=== PATIENT | female | born 2000 ===

== ENCOUNTER 2021-02-19 23:08 | Emergency (ER) | payer OTHER ==
[2021-02-20 00:30] LABS: Absolute Lymphocytes (CBC) 1.9 K/uL (0.7-4.9); Basophils % 0.3 % (0-1.3); Hematocrit 38.9 % (36.0-45.0); MPV 8.3 fL (7.6-11.3); Protime INR 1.15; RBC Red Blood Cell Count 4.54 M/uL (3.86-4.86)
[2021-02-20 00:45] LABS: ALT/SGPT 22 U/L (12-78); AST/SGOT 17 U/L (15-37); Albumin 3.4 g/dL (3.4-5.0); Alkaline Phosphatase 84 U/L (45-117); BUN Blood Urea Nitrogen 11 mg/dL (7-18); Bicarbonate 23 mmol/L (21-32); Bilirubin Direct < 0.1 mg/dL (0-0.2); Bilirubin Total 0.4 mg/dL (0.2-1.0); Glucose Level 126 mg/dL (74-106); NT PRO-BNP 53 pg/mL (<125); Potassium 3.2 mmol/L (3.5-5.1); Protein, Total 8.1 g/dL (6.4-8.2); Sodium Level 141 mmol/L (136-145); Troponin (Emerg Dept Use Only) < 0.02 ng/mL (0.0-0.045)
[2021-02-20] MEDS ORDERED: NA CHLORIDE 0.9% 1,000 ML ONE ×2 (01:08→02:03)
[2021-02-20] MEDS ORDERED: POTASSIUM CL SA 10 MEQ TAB PO ONE (02:03)
[2021-02-20] MEDS ORDERED: METHYLPREDNISOLONE 125 MG INJ ONE (02:13)
[2021-02-20] MEDS ORDERED: DIPHENHYDRAMINE 50 MG/ML VIAL ONE (02:14)
[2021-02-20] MEDS ORDERED: FAMOTIDINE 20 MG/2 ML VIAL IV ONE (02:14)
--- NOTE | 2021-02-20 03:34 | EDPHYS ---
Physician Documentation [facility] Name: Taniya Alcaraz Age: 20 yrs Sex: Female : 2000 Arrival Date: 02/19/2021 Time: 23:11 Bed 2 Private MD: ED Physician Anthony Marcelo HPI: 02/20 01:24 This 20 yrs old Female presents to ER via Ambulatory with complaints of Jellyfish mh7 Sting, Shortness Of Breath. 01:25 The patient was bitten on the right foot, by jellyfish. Onset: The symptoms/episode mh7 began/occurred yesterday, at 15:00. Animal information: jellyfish. Secondary to the bite the patient reports erythema, pain. Associated signs and symptoms: Pertinent positives: erythema at site, SOB. Severity of symptoms: At their worst the symptoms were moderate, yesterday, in the emergency department the symptoms have improved, moderately. MONITORING COORDINATOR: 02/19 23:45 LMP 02/18/2021 em Historical: - Allergies: 23:45 No Known Allergies; em - PMHx: 23:45 None; em - PSHx: 23:45 None; em - Immunization history:: Adult Immunizations up to date. - Social history:: Smoking status: Patient denies any tobacco usage or history of. ROS: 02/20 01:25 Constitutional: Negative for fever, chills, and weight loss, Eyes: Negative for injury, mh7 pain, redness, and discharge, ENT: Negative for injury, pain, and discharge, Neck: Negative for injury, pain, and swelling, Cardiovascular: Negative for chest pain, palpitations, and edema, Abdomen/GI: Negative for abdominal pain, nausea, vomiting, diarrhea, and constipation, Back: Negative for injury and pain, : Negative for injury, bleeding, discharge, and swelling, Neuro: Negative for headache, weakness, numbness, tingling, and seizure, Psych: Negative for depression, anxiety, suicide ideation, homicidal ideation, and hallucinations, Allergy/Immunology: Negative for hives, rash, and allergies, Endocrine: Negative for neck swelling, polydipsia, polyuria, polyphagia, and marked weight changes, Hematologic/Lymphatic: Negative for swollen nodes, abnormal bleeding, and unusual bruising. Exam: 01:25 Constitutional: This is a well developed, well nourished patient who is awake, alert, mh7 and in no acute distress. Head/Face: Normocephalic, atraumatic. Eyes: Pupils equal round and reactive to light, extra-ocular motions intact. Lids and lashes normal. Conjunctiva and sclera are non-icteric and not injected. Cornea within normal limits. Periorbital areas with no swelling, redness, or edema. Neck: Trachea midline, no thyromegaly or masses palpated, and no cervical lymphadenopathy. Supple, full range of motion without nuchal rigidity, or vertebral point tenderness. No Meningismus. Chest/axilla: Normal chest wall appearance and motion. Nontender with no deformity. No lesions are appreciated. Cardiovascular: Regular rate and rhythm with a normal S1 and S2. No gallops, murmurs, or rubs. Normal PMI, no JVD. No pulse deficits. Respiratory: Lungs have equal breath sounds bilaterally, clear to auscultation and percussion. No rales, rhonchi or wheezes noted. No increased work of breathing, no retractions or nasal flaring. Abdomen/GI: Soft, non-tender, with normal bowel sounds. No distension or tympany. No guarding or rebound. No evidence of tenderness throughout. Back: No spinal tenderness. No costovertebral tenderness. Full range of motion. 01:25 Neuro: Awake and alert, GCS 15, oriented to person, place, time, and situation. Cranial nerves II-XII grossly intact. Motor strength 5/5 in all extremities. Sensory grossly intact. Cerebellar exam normal. Normal gait. Psych: Awake, alert, with orientation to person, place and time. Behavior, mood, and affect are within normal limits. 01:25 Musculoskeletal/extremity: Extremities: noted in the right foot, dorsum: erythema, ROM: intact in all extremities, Circulation is intact in all extremities. Sensation intact. Compartment Syndrome exam of affected extremity: is normal. no numbness, no tingling, no sensation deficit, no palor, no weak pulses, Joints: All joints appear normal with full range of motion. Weight bearing: able to fully bear weight, without difficulty, Tendon exam: specific tendon testing normal through active and passive range of motion 01:25 Skin: erythema on dorsal right foot. Vital Signs: 02/19 23:43 BP 137 / 85; Pulse 135; Resp 24; Temp 97.7; Pulse Ox 99% on R/A; Weight 77.11 kg; bb Height 5 ft. 2 in. (157.48 cm); Pain 01/18; 02/20 01:03 BP 116 / 64; Pulse 104; Resp 19; Pulse Ox 98% ; ea 02:00 BP 112 / 68; Pulse 105; Resp 18; Pulse Ox 100% ; rr5 03:00 BP 109 / 61; Pulse 87; Resp 18; Pulse Ox 98% on R/A; ea 03:41 BP 106 / 75; Pulse 89; Resp 16; Pulse Ox 100% ; rr5 02/19 23:43 Body Mass Index 31.09 (77.11 kg, 157.48 cm) bb MDM: 03:32 Differential diagnosis: cellulitis, Jellyfish Sting. Data reviewed: vital signs, nurses [facility] notes, lab test result(s), cardiac enzymes, CBC, electrolytes, urinalysis, EKG, radiologic studies, plain films. Data interpreted: Pulse oximetry: on room air is 98 %. Interpretation: normal. Counseling: I had a detailed discussion with the patient and/or guardian regarding: the historical points, exam findings, and any diagnostic results supporting the discharge/admit diagnosis, lab results, radiology results, the need for outpatient follow up, to return to the emergency department if symptoms worsen or persist or if there are any questions or concerns that arise at home. Response to treatment: the patient's symptoms have resolved after treatment, the patient's blood pressure is in an acceptable range, mental status has returned to baseline, the patient no longer shows bradycardia, the patient is not short of breath, the patient is not tachycardic, the patient's pain is gone, the patient's temperature has normalized. 03:34 Patient medically screened. [facility] 02/19 23:50 Order name: Basic Metabolic Panel [facility] 02/19 23:50 Order name: CBC with Diff 02/19 23:50 Order name: LFT's 02/19 23:50 Order name: Magnesium; Complete Time: 01:39 [facility] 02/19 23:50 Order name: NT PRO-BNP; Complete Time: 01:39 [facility] 02/19 23:50 Order name: PT-INR; Complete Time: 01:39 02/19 23:50 Order name: Troponin (emerg Dept Use Only); Complete Time: 01:39 rr5 02/19 23:50 Order name: XRAY Chest (1 view) rr5 02/19 23:51 Order name: Basic Metabolic Panel; Complete Time: 01:39 EDMS 02/19 23:51 Order name: CBC with Automated Diff; Complete Time: 01:39 EDMS 02/19 23:51 Order name: Liver (Hepatic) Function; Complete Time: 01:39 EDMS 02/19 23:50 Order name: EKG; Complete Time: 23:51 5 02/19 23:50 Order name: Cardiac monitoring; Complete Time: 00:09 5 02/19 23:50 Order name: EKG - Nurse/Tech; Complete Time: 00:09 5 02/19 23:50 Order name: IV Saline Lock; Complete Time: 00:08 5 02/19 23:50 Order name: Labs collected and sent; Complete Time: 00:09 5 02/19 23:50 Order name: O2 Per Protocol; Complete Time: 00:09 5 02/19 23:50 Order name: O2 Sat Monitoring; Complete Time: 00:09 rr5 Administered Medications: 00:51 Drug: NS 0.9% 1000 ml Route: IV; Rate: 1 bolus; Site: left antecubital; ea 03:41 Follow up: IV Status: Completed infusion; IV Intake: 1000ml ea 01:48 Drug: NS 0.9% 1000 ml Route: IV; Rate: 1 bolus; Site: left forearm; rr5 03:41 Follow up: Response: No adverse reaction; IV Status: Completed infusion; IV Intake: ea 1000ml 01:48 Drug: Potassium Chloride 40 mEq Route: PO; rr5 03:42 Follow up: Response: No adverse reaction ea 01:55 Drug: Pepcid (famotidine) 20 mg Route: IVP; Site: left forearm; rr5 02:50 Follow up: Response: No adverse reaction rr5 03:42 Follow up: Response: No adverse reaction ea 01:58 Drug: SOLU-Medrol (methylPrednisoLONE) 125 mg Route: IVP; Site: left forearm; rr5 03:42 Follow up: Response: No adverse reaction ea 02:00 Drug: Benadryl (diphenhydrAMINE) 50 mg Route: IVP; Site: left forearm; rr5 03:42 Follow up: Response: No adverse reaction ea Disposition: 02/20/21 03:34 Discharged to Home. Impression: Toxic effect of contact with other jellyfish, accidental (unintentional). - Condition is Stable. - Discharge Instructions: Marine Life Injury, [id number]. - Prescriptions for Benadryl 25 mg Oral Capsule - take 1 capsule by ORAL route every 6 hours As needed; 30 tablet. Pepcid 20 mg Oral Tablet - take 1 tablet by ORAL route every 12 hours for 5 days; 10 tablet. Prednisone 20 mg Oral Tablet - take 2 tablet by ORAL route once daily for 5 days; 10 tablet. - Medication Reconciliation Form, Thank You Letter, Antibiotic Education, Prescription Opioid Use form. - Follow up: Private Physician; When: 1 - 2 days; Reason: Worsening of condition, Recheck today's complaints, Continuance of care, Re-evaluation by your physician. - Problem is new. - Symptoms have improved. Signatures: Dispatcher [employer] Francisco Javier Myles, RN RN Opal Cristina RN Frank Hendrickson ea, RN RN rr5 Anthony Marcelo MD MD mh7 Corrections: (The following items were deleted from the chart) 03:42 03:34 02/20/2021 03:34 Discharged to Home. Impression: Toxic effect of contact with ea other jellyfish, accidental (unintentional). Condition is Stable. Forms are Medication Reconciliation Form, Thank You Letter, Antibiotic Education, Prescription Opioid Use. Follow up: Private Physician; When: 1 - 2 days; Reason: Worsening of condition, Recheck today's complaints, Continuance of care, Re-evaluation by your physician. Problem is new. Symptoms have improved. mh7
--- NOTE | 2021-02-20 03:34 | ER ---
Nurse's Notes [facility] Name: Taniya Alcaraz Age: 20 yrs Sex: Female : 2000 Arrival Date: 02/19/2021 Time: 23:11 Bed 2 Private MD: Diagnosis: Toxic effect of contact with other jellyfish, accidental (unintentional) Presentation: 02/19 23:43 Chief complaint: Patient states: got stung by a jelly fish at 3 pm then at 6-7 pm em started to have shortness of breath and chest tightness, heart racing, redness noted to the right foot. Coronavirus screen: Client denies travel out of the [place] in the last 14 days. Ebola Screen:. Initial Sepsis Screen: Does the patient meet any 2 criteria? No. Patient's initial sepsis screen is negative. Does the patient have a suspected source of infection? No. Patient's initial sepsis screen is negative. Risk Assessment: Do you want to hurt yourself or someone else? Patient reports no desire to harm self or others. Onset of symptoms was February 19, 2021. 23:43 Method Of Arrival: Ambulatory em 23:43 Acuity: KARLA 2 em Triage Assessment: 23:45 General: Appears in no apparent distress. comfortable, Behavior is calm, cooperative, em appropriate for age. Pain: Complains of pain in right foot. Neuro: Level of Consciousness is awake, alert, obeys commands, Oriented to person, place, time, situation. Cardiovascular: Capillary refill < 3 seconds Patient's skin is warm and dry. Rhythm is sinus tachycardia. Respiratory: Reports shortness of breath Onset: The symptoms/episode began/occurred gradually, the patient has mild shortness of breath. Derm: Skin is intact, is healthy with good turgor, Skin is pink, warm \T\ dry. Musculoskeletal: Capillary refill < 3 seconds, Range of motion: intact in all extremities. FRAUD EXAMINER: 23:45 LMP 02/18/2021 em Historical: - Allergies: 23:45 No Known Allergies; em - PMHx: 23:45 None; em - PSHx: 23:45 None; em - Immunization history:: Adult Immunizations up to date. - Social history:: Smoking status: Patient denies any tobacco usage or history of. Screenin/12 00:35 Abuse screen: Denies threats or abuse. Nutritional screening: No deficits noted. ea Tuberculosis screening: No symptoms or risk factors identified. Fall Risk None identified. Assessment: 00:00 General: Appears in no apparent distress. comfortable, Behavior is calm, cooperative, rr5 appropriate for age. Pain: Complains of pain in right foot. Neuro: Level of Consciousness is awake, alert, obeys commands, Oriented to person, place, time. Cardiovascular: Capillary refill < 3 seconds Patient's skin is warm and dry. Rhythm is sinus tachycardia. Respiratory: Airway is patent Respiratory effort is even, unlabored, Respiratory pattern is regular, symmetrical. GI: No signs and/or symptoms were reported involving the gastrointestinal system. : No signs and/or symptoms were reported regarding the genitourinary system. EENT: No signs and/or symptoms were reported regarding the EENT system. Derm: Skin is intact, is healthy with good turgor, Skin is red, upper and lower extremities Skin temperature is hot. Musculoskeletal: Capillary refill < 3 seconds. 00:08 Reassessment: spoke to Poison Control who recommends supportive care, fluids, bb benzodiazepines, and pain medication as needed. If symptoms worsen call back for further recommendations on need for antidote. Case # [id number]. 01:03 Reassessment: Patient and/or family updated on plan of care and expected duration. Pain ea level reassessed. Patient is alert, oriented x 3, equal unlabored respirations, skin warm/dry/pink. 02:00 Reassessment: Patient appears in no apparent distress at this time. Patient is alert, rr5 oriented x 3, equal unlabored respirations, skin warm/dry/pink. ongoing second bag of NS infusing well Patient states symptoms have improved. Respiratory: 03:00 Reassessment: Patient and/or family updated on plan of care and expected duration. Pain ea level reassessed. Patient is alert, oriented x 3, equal unlabored respirations, skin warm/dry/pink. 03:40 Reassessment: Patient and/or family updated on plan of care and expected duration. Pain ea level reassessed. Patient is alert, oriented x 3, equal unlabored respirations, skin warm/dry/pink. Discharge instruction given to patient verbalized the understanding of instruction. Pt left ED ambulatory tolerating well. Vital Signs: 02/19 23:43 BP 137 / 85; Pulse 135; Resp 24; Temp 97.7; Pulse Ox 99% on R/A; Weight 77.11 kg; bb Height 5 ft. 2 in. (157.48 cm); Pain 01/18; 02/20 01:03 BP 116 / 64; Pulse 104; Resp 19; Pulse Ox 98% ; ea 02:00 BP 112 / 68; Pulse 105; Resp 18; Pulse Ox 100% ; rr5 03:00 BP 109 / 61; Pulse 87; Resp 18; Pulse Ox 98% on R/A; ea 03:41 BP 106 / 75; Pulse 89; Resp 16; Pulse Ox 100% ; rr5 06 23:43 Body Mass Index 31.09 (77.11 kg, 157.48 cm) bb ED Course: 02/19 23:11 Patient arrived in ED. bp1 23:45 Triage completed. em 23:45 Arm band placed on. em 23:50 Frank Perez RN is Primary Nurse. rr5 02/20 00:00 EKG done, by ED staff, reviewed by Anthony Marcelo MD. rr5 00:09 Inserted saline lock: 20 gauge in left forearm, using aseptic technique. Blood rr5 collected. 00:10 Patient has correct armband on for positive identification. Placed in gown. Bed in low rr5 position. Call light in reach. monitoring specialist on. Pulse ox on. NIBP on. 00:13 XRAY Chest (1 view) In Process Unspecified. EDMS 00:16 Anthony Marcelo MD is Attending Physician. [facility] 03:41 No provider procedures requiring assistance completed. IV discontinued, intact, ea bleeding controlled, No redness/swelling at site. Pressure dressing applied. Administered Medications: 00:51 Drug: NS 0.9% 1000 ml Route: IV; Rate: 1 bolus; Site: left antecubital; ea 03:41 Follow up: IV Status: Completed infusion; IV Intake: 1000ml ea 01:48 Drug: NS 0.9% 1000 ml Route: IV; Rate: 1 bolus; Site: left forearm; rr5 03:41 Follow up: Response: No adverse reaction; IV Status: Completed infusion; IV Intake: ea 1000ml 01:48 Drug: Potassium Chloride 40 mEq Route: PO; rr5 03:42 Follow up: Response: No adverse reaction ea 01:55 Drug: Pepcid (famotidine) 20 mg Route: IVP; Site: left forearm; rr5 02:50 Follow up: Response: No adverse reaction rr5 03:42 Follow up: Response: No adverse reaction ea 01:58 Drug: SOLU-Medrol (methylPrednisoLONE) 125 mg Route: IVP; Site: left forearm; rr5 03:42 Follow up: Response: No adverse reaction ea 02:00 Drug: Benadryl (diphenhydrAMINE) 50 mg Route: IVP; Site: left forearm; rr5 03:42 Follow up: Response: No adverse reaction ea Intake: 03:41 IV: 1000ml; Total: 1000ml. ea 03:41 IV: 1000ml; Total: 2000ml. ea Outcome: 03:34 Discharge ordered by Jam 03:41 Discharged to home ambulatory, with family. ea 03:41 Condition: stable 03:41 Discharge instructions given to patient, Instructed on discharge instructions, follow up and referral plans. Demonstrated understanding of instructions, follow-up care. 03:42 Patient left the ED. ea Signatures: Dispatcher [employer] EDFrancisco Javire Martines RN Shelly Foster RN RN Opal Zee RN RN ea Roque, Raymond, RN RN rr5 Tena Ross Maurice, MD MD mh7 Corrections: (The following items were deleted from the chart) 00:10 06/11 23:43 BP 137 / 85; Pulse 135bpm; Resp 20bpm; Pulse Ox 99% RA; Temp 97.7F; 77.11 bb kg; Height 5 ft. 2 in.; BMI: 31.0; Pain 5/10; em
[2021-02-20 04:10] VITALS: TEMP 97.7
[2021-02-20 04:17] VITALS: BP 106/75; O2SAT 100
--- NOTE | 2021-02-20 08:29 | RAD REPORT ---
EXAM DESCRIPTION: RAD - Chest Single View - 02/20/2021 12:14 am CLINICAL HISTORY: CHEST PAIN, shortness of breath COMPARISON: None TECHNIQUE: AP portable chest image was obtained 02/20/2021 12:14 am . FINDINGS: Lungs are clear. Heart and vasculature are normal. No measurable pleural effusion and no p neumothorax. No acute bony abnormality seen. No acute aortic findings suspected. IMPRESSION: No acute cardiopulmonary process.
== END 2021-02-20 03:42 | disposition home or self-care (01) ==
LOC: ER 23:08
DX: T63.621A Toxic effect of contact with other jellyfish, accidental (unintentional), initial encounter (principal)
CPT/HCPCS: 85025; 80048; 36415; 83735; 85610; 80076; 84484; 83880; 71045; J1200; J7030 ×2; J2930; 93005; 96361; 96374; 96375; 99284